=== PATIENT | female | born 1965 | race Caucasian/White ===

== ENCOUNTER 2018-10-06 13:57 | Outpatient (REF) | payer SELFPAY ==
[2018-10-06 15:46] LABS: BUN 10 mg/dL (7-18); CREATININE 0.68 mg/dL (0.55-1.02); Calcium 9.7 mg/dL (8.5-10.1); Chloride 101 mmol/L (98-107); Cholesterol 177 mg/dL (50-200); Glucose 104 mg/dL (70-100); HDL Cholesterol 84 mg/dL (40-60); LDL CHOLESTEROL 77 mg/dL (<100); Potassium 4.4 mmol/L (3.5-5.1); Sodium 140 mmol/L (136-145); Triglyceride 46 mg/dL (30-150)
== END 2018-10-06 14:17 ==
LOC: NCHCN 13:57
PROVIDERS: PCP Internal Medicine; Visit Provider Internal Medicine
DX: I50.9 Heart failure, unspecified (principal); F17.200 Nicotine dependence, unspecified, uncomplicated; Z00.00 Encounter for general adult medical examination without abnormal findings
CPT/HCPCS: 80048; 80061; 83721

== ENCOUNTER 2020-08-04 02:16 | Outpatient (CLI) | payer OTHER, SELFPAY ==
--- NOTE | 2020-08-04 | DI.MAMMO_ITS ---
EXAM: MAMMO SCREENING CLINICAL HISTORY: SCREENING,Z12.31 TECHNIQUE: Bilateral full field digital CC and MLO mammographic images were obtained with 3D tomosyn thesis and utilizing computer aided detection (CAD). COMPARISON: None. FINDINGS: Masses/Architectural Distortion: Asymmetric density in the outer right breast on the CC view. This m ay reflect overlying fibroglandular tissue but spot compression is recommended for further evaluation . Microcalcifications: No suspicious pleomorphic-type are seen. Skin Thickening/Nipple Retraction: None. IMPRESSION: 1. Asymmetric density in the outer right breast on the CC view. 2. Spot compression views recommended for further evaluation. Ultrasound may be indicated at that ti me. BI-RADS Category 0 - Assessment Incomplete: Need additional imaging evaluation Breast Density - Category B - Scattered areas of fibroglandular density A negative radiographic report should not delay biopsy if a dominant or clinically suspicious mass is present. Up to ten percent of cancers are not identified on mammography. A negative report may reinforce clinical impression. Adenosis and dense breasts may obscure an underlying neoplasm. False positive reports average 6 to 10%. Patient will receive a letter notifying them of these results.
== END 2020-08-04 02:36 ==
PROVIDERS: PCP Internal Medicine; Visit Provider Internal Medicine
DX: Z12.31 Encounter for screening mammogram for malignant neoplasm of breast (principal); R92.8 Other abnormal and inconclusive findings on diagnostic imaging of breast
CPT/HCPCS: 77063; 77067

== ENCOUNTER 2020-09-05 03:31 | Outpatient (CLI) | payer OTHER, SELFPAY ==
--- NOTE | 2020-09-05 | DI.MAMMO_ITS ---
EXAM: MG MAMMO SCREEN CALL BACK UNI CLINICAL HISTORY: F/U MAMMO, ASYMMETRIC DENSITY OUTER BREAST RT ON CC VIEW TECHNIQUE: Spot compression views and tomographic imaging were performed. COMPARISON: 04 August 2020. FINDINGS: Additional views right breast: No suspicious masses or suspicious microcalcifications are seen. No persistent abnormality is seen on the additional views performed. The findings are consistent wit h overlying fibroglandular tissue. Right breast ultrasound: No cyst or mass is identified. IMPRESSION: BI-RADS Category 3 - Probably Benign Finding: Recommend follow-up mammography in 3 months Breast Density - Category B, scattered fibroglandular densities.
== END 2020-09-05 03:51 ==
PROVIDERS: PCP Internal Medicine; Visit Provider Internal Medicine
DX: R92.8 Other abnormal and inconclusive findings on diagnostic imaging of breast (principal); R92.2 Inconclusive mammogram
CPT/HCPCS: 76642; 77063; 77067

== ENCOUNTER 2020-09-11 08:48 | Outpatient (CLI) | payer OTHER, SELFPAY ==
[2020-09-13 10:04] LABS: COVID-19 RT-PCR Result NEGATIVE (Negative)
== END 2020-09-11 09:08 ==
PROVIDERS: PCP Internal Medicine; Visit Provider Internal Medicine
DX: J06.9 Acute upper respiratory infection, unspecified (principal); R09.81 Nasal congestion
CPT/HCPCS: U0003

== ENCOUNTER → 2020-11-12 09:18 | Outpatient (CLI) | payer OTHER, SELFPAY ==
--- NOTE | 2020-11-11 13:53 | DI.RAD_ITS ---
EXAM: XR HAND LT COMPLETE CLINICAL HISTORY: LT HAND JOINT PAIN, M79.642,WORK INJURY. TECHNIQUE: 2D digital imaging was performed. COMPARISON: No exams were available for comparison FINDINGS: BONES: No acute fracture is present. No bony destructive lesion is seen. JOINTS: No dislocation present. Mild spurring is seen at the 2nd and 3rd metacarpophalangeal joints. SOFT TISSUE: Normal. IMPRESSION: No acute fracture or dislocation. DATA REPOSITORY: RADIATION DOSE DELIVERED:
== END ==
PROVIDERS: PCP Internal Medicine; Visit Provider Internal Medicine
DX: M79.642 Pain in left hand (principal)
CPT/HCPCS: 73130

== ENCOUNTER 2021-03-19 12:45 | Outpatient (REF) | payer OTHER, SELFPAY ==
[2021-03-19 21:16] LABS: HCT 38.6 % (36.0-46.0); HGB 12.9 g/dL (11.2-15.7); MCH 32.6 pg (27.0-33.0); MCHC 33.4 % (32.0-36.0); MCV 97.5 fL (80-95); MPV 10.4 fL (8.0-11.0); Platelet Count 297 10^3/uL (130-400); RBC 3.96 10^6/uL (3.93-5.22); RDW 12.2 % (11.7-14.6); RDW-SD 43.9 fL; WBC 7.96 10^3/uL (4.4-10.8)
[2021-03-19 21:47] LABS: Anion Gap 12.2 mmol/L (3-11); BUN 10 mg/dL (7-18); CO2 26.8 mmol/L (21.0-32.0); CREATININE 0.8 mg/dL (0.55-1.02); Calcium 9.7 mg/dL (8.5-10.1); Chloride 102 mmol/L (98-107); Glucose 103 mg/dL (74-106); Potassium 3.8 mmol/L (3.5-5.1); Sodium 141 mmol/L (136-145)
== END 2021-03-19 12:46 | disposition home or self-care (01) ==
LOC: NCHCN 12:45
PROVIDERS: PCP Internal Medicine; Visit Provider Internal Medicine
DX: R06.02 Shortness of breath (principal); I50.9 Heart failure, unspecified; F17.200 Nicotine dependence, unspecified, uncomplicated; E66.9 Obesity, unspecified; J44.9 Chronic obstructive pulmonary disease, unspecified
CPT/HCPCS: 80048; 85027

== ENCOUNTER 2021-05-03 10:26 | Emergency (ER) | payer OTHER, SELFPAY ==
[2021-05-03 11:03] VITALS: BP 159/77; PULSE 61; RESP 17; TEMP 36.7; O2SAT 98
--- NOTE | 2021-05-03 11:05 | ED.GENADUL_ITS ---
Discharge Plan Disposition Patient Disposition: HOME Condition: Stable Discharge Details Clinical Impression: Acute lumbar back pain, Sciatica Primary Care Provider: Alexx Pineda ED Provider: Betsey Carrasquillo Home Meds and New Rx's Prescriptions: New cyclobenzaprine 10 mg tablet 10 mg PO TID PRN (Reason: muscle spasm) Qty: 14 RF: 0 Continued spironolactone 25 MG tablet 25 mg PO DAILY RF: 0 lisinopril 5 MG tablet 5 mg PO QAM Qty: 30 RF: 6 Discharge Instructions Instructions: Sciatica (ED), Low Back Strain (ED) Additional Instructions: Encourage hydration. He may continue with Tylenol and/or ibuprofen as needed for discomfort. Please take as directed on packaging. You may continue with local patches such as lidocaine patches to help with discomfort. Please encourage hydration. Please encourage gentle stretching and frequent gentle walking. Please avoid any heavy lifting. You may use the Flexeril as prescribed to help with muscle spasm. Please not drive will take this medication. If you develop fever/chills, weakness, sensation changes, change in bowel or bladder habits or other new/worsening symptom please seek care urgently once again. Otherwise complete follow-up with your primary care in 1 week for reevaluation. Referral for physical therapy is also attached Stand Alone Forms: Physical Therapy Referral Referrals: Alexx Pineda MD [Primary Care Provider] - Discharge Data Discharge Date/Time-TO BE ENTERED AT DEPARTURE: 05/03/21 11:26 Medical Decision Making Patient is a pleasant 55-year-old female presents today with a complaint of left lower back pain. 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 Patient reports that they were short staffed and overexerted herself. She states she has had a clot on the right side historically and that this feels the same. To that she has burning pain that radiates down the left buttock down the posterior aspect of the leg and onto the bottom of the foot with certain movements. Feels that she is been having spasms. Has been having difficulty with certain movements. Does feel weak when trying to lead stairs with the left leg compared to the contralateral side. She denies any numbness or tingling. Denies any change in bowel or bladder habits. On exam, patient appears nontoxic. She has equal strength in her bilateral lower extremities. No saddle paresthesias. Reflexes are intact bilaterally. She is exquisitely tender over the left SI joint and under the left buttock. She is tight over this area consistent with muscle spasms in her history of sciatica. Not see any neurological deficit at this time. Exam is not consistent with cauda equina. Will treat for flare of low back pain as well as sciatica. Patient has been using Tylenol and ibuprofen. I will asked that she continue with this. We will place a lidocaine patch and sent a prescription for Flexeril to her pharmacy. She reports that she has worked well for her in the past. Asked that she follow-up closely with her primary care in 1 week for reevaluation. Return precautions were discussed. All questions concerns were addressed and she is in agreement with plan. HPI General Mode of arrival: ambulatory . Date/Time Provider Initiated Documentation: 05/03/21 10:26 . Limitations to Documentation: no limitations . Information obtained by: patient and RN notes reviewed . History of Present Illness 55 year old F presents to the emergency department with the chief complaint of back spasms with pain radiating down posterior left leg, described as moderate and similar to prior episodes (has had similar historically on contralateral side, dx previously with sciatica), with intensity rated at 7. Quality is described as burning, and is localized to the back. Patient extremity. Patient started experiencing this day(s) and it has been constant. Immobilization improves symptom(s), Movement worsens symptoms . Patient notes no other symptoms.; denies fever/chills, rash and weakness. Patient did receive the following treatments prior to arrival, NSAID Related Data Home Medications Medication Instructions Recorded Confirmed lisinopril 5 mg PO QAM #30 tab 10/01/16 05/03/21 spironolactone 25 mg PO DAILY 09/30/17 05/03/21 cyclobenzaprine 10 mg PO TID PRN #14 tab 05/03/21 Previous Rx's Medication Instructions Recorded lisinopril 5 mg PO QAM #30 tab 10/01/16 cyclobenzaprine 10 mg PO TID PRN #14 tab 05/03/21 Allergies Allergy/AdvReac Type Severity Reaction Status Date / Time codeine Allergy Mild Skin Rash Unverified 05/03/21 11:17 Sulfa (Sulfonamide Allergy Unknown Unverified 05/03/21 11:17 Antibiotics) Review of Systems Constitutional Constitutional: Reports as per HPI, Denies chills, Denies fatigue, Denies fever(s), Denies frequent falls and Denies headache(s) Eyes Eyes: Denies change in vision ENT Ears, Nose, Mouth, and Throat: Denies headache(s) Cardiovascular Cardiovascular: Denies chest pain, Denies dyspnea and Denies dyspnea on exertion Respiratory Respiratory: Denies cough, Denies dyspnea and Denies dyspnea on exertion Gastrointestinal Gastrointestinal: Denies abdominal pain, Denies change in bowel habits and Denies fecal incontinence Genitourinary Genitourinary: Reports as per HPI, Denies urinary incontinence and Denies urinary hesitancy Musculoskeletal Musculoskeletal: Reports as per HPI, Reports back pain, Denies muscle weakness, Denies numbness, Denies radiating pain into limb, Reports stiffness and Denies tingling Integumentary/Breasts Skin/Breast: Reports as per HPI and Denies rash Neurologic Neurologic: Reports as per HPI, Denies frequent falls, Denies headache(s), Denies localized weakness, Denies numbness, Reports radicular pain, Denies sensory deficit, Denies tingling and Denies paresthesias Endocrine Endocrine: Denies fatigue [facility] Social History Smoking/Tobacco Use Status: Current every day Smoking risk assessment performed?: Yes Alcohol Intake: current Alcohol Intake frequency: a few times a week Drug use: Never Do you feel safe at home: Yes Do you feel safe in your relationship?: Yes Exam Const General: cooperative, healthy appearing, comfortable, no acute distress, well developed and well groomed Nutritional Appearance: average body habitus and well nourished Orientation: alert and awake Eyes General: appearance normal, both eyes and all related structures Neck Neck: normal visual inspection, full ROM, no lymphadenopathy and no meningeal signs Resp Effort & Inspection: normal respiratory effort and able to speak in complete sentences Auscultation: clear to auscultation bilaterally, no rales, no rhonchi and no wheezes Cardio Rate: regular rate Rhythm: regular rhythm Heart Sounds: S1 normal and S2 normal Back/Spine/Pelvis Cervical Spine: cervical ROM normal and No step off deformity Thoracic/Lumbar Spine: thoracic and lumbar spine normal to inspection, bend over test abnormal (pain with forward flexion), No mass, No thoracic spinal tenderness and No lumbar spinal tenderness Pelvis: no buttock ecchymosis and buttock tenderness (at gluteal fold) on the left Sacroiliac joints: on the left tender to palpation Skin General skin exam: no rashes or lesions noted Neuro General: patient alert and patient awake Cognition: normal cognition Speech: speech normal Gait: normal gait Motor: muscle tone normal throughout, strength 5/5 throughout, no movement abnormalities noted and no fasciculations Sensory Exam: no sensory deficits noted (no saddle paresthesias) DTR's: Rt Patellar: 2+, Lt Patellar: 2+, Rt Ankle: 2+ and Lt Ankle: 2+ Extrem General: normal to inspection, full ROM, capillary refill normal, no joint enlargement, no pedal edema, no calf tenderness and normal gait Psych Appearance: grossly normal and well kempt Mental Status: mental status grossly normal Speech and Movement: speech and movement normal
[2021-05-03] MEDS: Lidocaine 5% Patch 1 PATCH TP (11:23)
== END 2021-05-03 11:26 | disposition home or self-care (01) ==
PROVIDERS: Emergency Provider Physician Assistant; PCP Internal Medicine
DX: M54.42 Lumbago with sciatica, left side (principal); X50.0XXA Overexertion from strenuous movement or load, initial encounter; Y99.0 Civilian activity done for income or pay
CPT/HCPCS: 99283

== ENCOUNTER 2021-07-20 01:38 | Outpatient (CLI) | payer OTHER, SELFPAY ==
--- NOTE | 2021-07-20 | DI.US_ITS ---
Exam(s) US BREAST RT COMPLETE MG MAMMO DIAGNOSTIC BI EXAM: MG MAMMO DIAGNOSTIC BI AND COMPLETE RIGHT BREAST ULTRASOUND CLINICAL HISTORY: DIAGNOSTIC, SHORT TERM FOLLOW UP. TECHNIQUE: Unilateral spot mammographic images were obtained with 3D tomosynthesis technique and uti lizing computer aided detection (CAD). COMPARISON: Prior mammograms of August 2020 FINDINGS: Asymmetric densities both breasts are again noted. Density in left breast is unchanged. Right breast appears slightly different. Spot compression view s performed and renders this area is similar to prior study. No new masses nor malignant-appearing m icrocalcification groups in either breast. COMPLETE RIGHT BREAST ULTRASOUND: There is no evidence of solid or significant cystic lesions in all 4 quadrants of the right breast no r in the retroareolar region. This implies that the asymmetric density is most probably just asymmet juni fibroglandular tissue, as opposed to a true nodule. Scanning of the ipsilateral-right axilla reveals benign-appearing lymph nodes. IMPRESSION: Benign findings. No radiographic evidence of malignancy. Appropriate follow-up is to keep this patient yearly mammogram schedule, with earlier imaging if a se lf detected breast change is noted. The patient was informed of the findings and follow-up recommendations prior to leaving the [facility]. BI-RADS Category 2 - Benign Findings Breast Density - Category B - Scattered areas of fibroglandular density Breast density Category C or D implies that the patient has dense breast tissue. Dense breast tissue can make it harder to find cancer on a mammogram. Dense breast tissue is also associated with an incr eased risk of breast cancer. This information about the result of the mammogram report was provided to the patient to raise their awareness. Use this report when you speak with the patient about their risks for breast cancer, which includes their family history. At that time, you may recommend additional screening tests (Ultrasoun d or MRI) as these tests may add significant information. A negative radiographic report should not delay biopsy if a dominant or clinically suspicious mass is present. Up to ten percent of cancers are not identified on mammography. A negative report may reinforce clinical impression. Adenosis and dense breasts may obscure an underlying neoplasm. False positive reports average 6 to 10%. Patient will receive a letter notifying them of these results.
== END 2021-07-20 01:58 ==
PROVIDERS: PCP Internal Medicine; Visit Provider Internal Medicine
DX: R92.8 Other abnormal and inconclusive findings on diagnostic imaging of breast (principal)
CPT/HCPCS: 76642; 77062; 77066; G0279

== ENCOUNTER 2022-03-22 13:29 | Outpatient (REF) | payer OTHER, SELFPAY ==
[2022-03-22 14:46] LABS: Anion Gap 7.8 mmol/L (3-11); BUN 10 mg/dL (7-18); CO2 29.2 mmol/L (21.0-32.0); CREATININE 0.7 mg/dL (0.55-1.02); Calcium 9.2 mg/dL (8.5-10.1); Chloride 101 mmol/L (98-107); Glucose 105 mg/dL (74-106); Potassium 4.1 mmol/L (3.5-5.1); Sodium 138 mmol/L (136-145)
== END 2022-03-22 13:30 | disposition home or self-care (01) ==
LOC: NCHCN 13:29
PROVIDERS: PCP Internal Medicine; Visit Provider Family Medicine
DX: Z00.00 Encounter for general adult medical examination without abnormal findings (principal); I50.9 Heart failure, unspecified; J44.9 Chronic obstructive pulmonary disease, unspecified
CPT/HCPCS: 80048

== ENCOUNTER 2023-07-06 10:25 | Outpatient (REF) | payer OTHER, SELFPAY ==
[2023-07-06 15:36] LABS: Abs Immature Grans 0.01 10^3/uL (0.0-0.06); Absolute Basophil Count 0.06 10^3/uL (0.0-0.2); Absolute Eosinophil Count 0.34 10^3/uL (0.0-0.7); Absolute Lymphocyte Count 1.01 10^3/uL (1.2-3.4); Absolute Neutrophil Count 3.45 10^3/uL (1.2-6.7); Basophils % 1.2; Eosinophils % 6.6; HCT 37.7 % (36.0-46.0); HGB 12.6 g/dL (11.2-15.7); Immature Grans % 0.2; Lymphocytes % 19.5; MCH 32.5 pg (27.0-33.0); MCHC 33.4 % (32.0-36.0); MCV 97 fL (80-95); MPV 10.7 fL (8.0-11.0); Monocytes % 5.8; Neutrophils % 66.7; Platelet Count 265 10^3/uL (130-400); RBC 3.88 10^6/uL (3.93-5.22); RDW 12.5 % (11.7-14.6); RDW-SD 44.9 fL; WBC 5.17 10^3/uL (4.4-10.8)
[2023-07-06 15:58] LABS: ALT 46 U/L (14-59); AST 24 U/L (15-37); Albumin 4.2 g/dL (3.4-5.0); Alkaline Phosphatase 58 U/L (46-116); Anion Gap 5.8 mmol/L (3-11); BUN 21 mg/dL (7-18); Bilirubin, Total 0.5 mg/dL (0.2-1.0); CO2 31.2 mmol/L (21.0-32.0); CREATININE 0.6 mg/dL (0.55-1.02); Calcium 9.4 mg/dL (8.5-10.1); Chloride 102 mmol/L (98-107); Estimated GFR 103.33 (mL/min/1.73m2); Glucose 90 mg/dL (74-106); Potassium 4.4 mmol/L (3.5-5.1); Sodium 139 mmol/L (136-145); TSH (W/Ref FT4) 4.63 uIU/mL (0.36-3.74); Total Protein 7.7 g/dL (6.4-8.2)
[2023-07-06 16:21] LABS: FREE T4 0.71 ng/dL (0.76-1.46)
== END 2023-07-06 10:26 | disposition home or self-care (01) ==
LOC: NCHCN 10:25
PROVIDERS: PCP Internal Medicine; Visit Provider Family Medicine
DX: I50.9 Heart failure, unspecified (principal); F10.99 Alcohol use, unspecified with unspecified alcohol-induced disorder; J44.9 Chronic obstructive pulmonary disease, unspecified
CPT/HCPCS: 80053; 84439; 84443; 85025

== ENCOUNTER → 2023-08-01 01:55 | Outpatient (CLI) | payer OTHER, SELFPAY ==
--- NOTE | 2023-08-01 | DI.MAMMO_ITS ---
Exam(s) MAMMO SCREENING EXAM: MAMMO SCREENING CLINICAL HISTORY: SCREENING, PREVENTATIVE CARE, Z00.00 TECHNIQUE: Mammograms were interpreted according to the usual protocol including computer analysis w [employer] CAD system, tomosynthesis and C-view imaging. COMPARISON: 2019 and 2020 FINDINGS: The breasts are composed of scattered fibroglandular densities, Breast Density category B. No suspicious masses or suspicious microcalcifications are seen. Areas of volume asymmetric breast t issue are again noted in the upper outer quadrant of both breasts. No skin thickening or abnormal axillary lymph nodes are seen. There has been no significant change from prior exams. IMPRESSION: BI-RADS Category 2 - Benign Findings Yearly screening mammography is recommended. Breast Density - Category B, scattered fibroglandular densities. A negative radiographic report should not delay biopsy if a dominant or clinically suspicious mass is present. Up to ten percent of cancers are not identified on mammography. A negative report may reinforce clinical impression. Adenosis and dense breasts may obscure an underlying neoplasm. False positive reports average 6 to 10%. Patient will receive a letter notifying them of these results.
== END ==
PROVIDERS: PCP Internal Medicine; Visit Provider Family Medicine
DX: Z12.31 Encounter for screening mammogram for malignant neoplasm of breast (principal)
CPT/HCPCS: 77063; 77067

== ENCOUNTER 2024-07-24 16:13 | Outpatient (REF) | payer OTHER, SELFPAY ==
[2024-07-24 18:34] LABS: Abs Immature Grans 0.01 10^3/uL (0.0-0.06); Absolute Basophil Count 0.05 10^3/uL (0.0-0.2); Absolute Eosinophil Count 0.44 10^3/uL (0.0-0.7); Absolute Lymphocyte Count 1.03 10^3/uL (1.2-3.4); Absolute Monocyte Count 0.36 10^3/uL (0.1-0.8); Absolute Neutrophil Count 3.92 10^3/uL (1.2-6.7); Basophils % 0.9 %; Eosinophils % 7.6 %; HCT 38.6 % (36.0-46.0); HGB 12.8 g/dL (11.2-15.7); Immature Grans % 0.2 %; Lymphocytes % 17.7 %; MCH 32.6 pg (27.0-33.0); MCHC 33.2 % (32.0-36.0); MCV 98 fL (80-95); MPV 10.9 fL (8.0-11.0); Monocytes % 6.2 %; Neutrophils % 67.4 %; Platelet Count 274 10^3/uL (130-400); RBC 3.93 10^6/uL (3.93-5.22); RDW 12.3 % (11.7-14.6); RDW-SD 44.8 fL; WBC 5.81 10^3/uL (4.4-10.8)
[2024-07-24 18:52] LABS: ALT 79 U/L (14-59); AST 40 U/L (15-37); Alkaline Phosphatase 66 U/L (46-116); Anion Gap 10.4 mmol/L (3-11); BUN 17 mg/dL (7-18); Bilirubin, Total 0.54 mg/dL (0.2-1.0); CO2 28.6 mmol/L (21.0-32.0); CREATININE 0.7 mg/dL (0.55-1.02); Calcium 9.4 mg/dL (8.5-10.1); Chloride 106 mmol/L (98-107); Estimated GFR 98.95 (mL/min/1.73m2); Glucose 117 mg/dL (74-106); LDL CHOLESTEROL 94 mg/dL (<100); Potassium 4.5 mmol/L (3.5-5.1); Sodium 145 mmol/L (136-145); Total Protein 7.5 g/dL (6.4-8.2)
== END 2024-07-24 16:14 | disposition home or self-care (01) ==
LOC: NCHCN 16:13
PROVIDERS: PCP Family Medicine; Visit Provider Family Medicine
DX: Z00.00 Encounter for general adult medical examination without abnormal findings (principal); I10 Essential (primary) hypertension
CPT/HCPCS: 80053; 83721; 85025